=== PATIENT | female | born 1965 | race Caucasian/White ===

== ENCOUNTER 2021-04-19 02:47 | Emergency (ER) | payer OTHER, SELFPAY ==
[~2021-04-19 02:47] MED LIST: DIVA-80 PO; HALO1TAB19 PO; HYDR50CA9 PO; PARO30TA76 PO; TRAZ-186 PO
== END 2021-04-19 05:00 | disposition left against medical advice (07) ==
LOC: EMS 02:50
DX: R45.851 Suicidal ideations (principal); Z53.21 Procedure and treatment not carried out due to patient leaving prior to being seen by health care provider

== ENCOUNTER 2021-06-23 13:58 | Inpatient (IN) | payer MEDICAID ==
[~2021-06-23] VITALS: Ht 167.6 cm; Wt 70.5 kg
[~2021-06-23 13:58] MED LIST changes: +HYDR50CA7 PO; -HYDR50CA9 PO
[2021-06-23] MEDS ORDERED: HALOPERIDOL 5 MG TABLET PO PRN (19:15)
[2021-06-23] MEDS ORDERED: LORazepam 2 MG TABLET PO PRN ×2 (19:15→21:45)
[2021-06-23] MEDS ORDERED: ZOLPIDEM TARTRATE 10 MG TABLET PO PRN (19:15)
[2021-06-23] MEDS ORDERED: HALO2 PO (19:20)
[2021-06-23] MEDS ORDERED: INFLUENZA VIRUS VACCINE QVS 2021-22 (6MO+)/PF 60 MCG/0.5 ML SYRINGE IM. ONE (20:15)
[2021-06-23 21:10] VITALS: BP 147/96
[2021-06-23] MEDS ORDERED: LITH300C3 PO (21:40)
[2021-06-23] MEDS ORDERED: LURA40TA2 PO (21:40)
[2021-06-23] MEDS ORDERED: QUET300T2 PO (21:40)
[2021-06-23] MEDS ORDERED: GABA-1181 PO (21:40)
[2021-06-23] MEDS ORDERED: ROPI2TAB26 PO (21:40)
[2021-06-23 22:10] VITALS: BP 149/80
[2021-06-23 23:10] VITALS: BP 146/93
[2021-06-23 23:53] VITALS: BP 146/93
[2021-06-24] VITALS (8 sets, daily range): BP systolic 121–143; BP diastolic 70–96
[2021-06-24] MEDS ORDERED: ONDANSETRON HCL 4 MG TABLET PO PRN (07:00)
[2021-06-24] MEDS ORDERED: PETROLATUM,WHITE 28 GM JELLY TP PRN (07:00)
[2021-06-24] MEDS ORDERED: ALBUTEROL SULFATE HFA 90 MCG/PUFF 8 GM INHALER IH PRN (07:00)
[2021-06-24] MEDS ORDERED: NICOTINE 14 MG/24 HOUR PATCH TD PRN (07:00)
[2021-06-24] MEDS ORDERED: GuaiFENesin/D-METHORPHAN [SUGAR-FREE] 200-20MG/10 ML SYRUP UDCUP PO PRN (07:00)
[2021-06-24] MEDS ORDERED: MAG HYDROX/AL HYDROX/SIMETH ES 30 ML SUSPENSION UDCUP PO PRN (07:00)
[2021-06-24] MEDS ORDERED: LORazepam 2 MG TABLET PO PRN (07:00)
[2021-06-24] MEDS ORDERED: DOCUSATE SODIUM 100 MG CAPSULE PO PRN (07:00)
[2021-06-24] MEDS ORDERED: IBUPROFEN 400 MG TABLET PO PRN (07:00)
[2021-06-24] MEDS ORDERED: MAGNESIUM HYDROXIDE SUSPENSION 30 ML UDCUP PO PRN (07:00)
[2021-06-24] MEDS ORDERED: ACETAMINOPHEN 325 MG TABLET PO PRN (07:00)
[2021-06-24] MEDS ORDERED: CloNIDine HCL 0.1 MG TABLET PO PRN (07:00)
[2021-06-24] MEDS ORDERED: LOPERAMIDE HCL 2 MG CAPSULE PO PRN (07:00)
[2021-06-24 07:05] LABS: BASOPHILS % (AUTO) 0.5 % (0.0-2.0); EOSINOPHILS % (AUTO) 1.1 % (1.0-6.0); HEMATOCRIT 38.8 % (36-46); HEMOGLOBIN 13.1 g/dL (12.0-16.0); LYMPHOCYTES # (AUTO) 1.6 K/uL (1.0-4.8); LYMPHOCYTES % (AUTO) 23.8 % (22.0-44.0); MEAN CORPUSCULAR HEMOGLOBIN 29.7 pg (26.0-34.0); MEAN CORPUSCULAR HGB CONC 33.7 G/dL (31.0-37.0); MEAN CORPUSCULAR VOLUME 88 fL (80-100); MONOCYTES # (AUTO) 0.4 K/uL (0.1-1.0); MONOCYTES % (AUTO) 5.9 % (2.0-9.0); NEUTROPHILS # (AUTO) 4.6 K/uL (1.8-7.7); NEUTROPHILS % (AUTO) 68.7 % (40.0-70.0); PLATELET COUNT (AUTO) 276 K/uL (150-450); RED CELL DISTRIBUTION WIDTH 17.2 % (11.5-14.5)
[2021-06-24 07:22] LABS: HEMOGLOBIN A1C 5.1 % (3.8-5.6)
[2021-06-24 07:39] LABS: ALANINE AMINOTRANSFERASE 49 U/L (12-78); ALBUMIN 3.7 g/dL (3.4-5.0); ALKALINE PHOSPHATASE 78 U/L (46-116); ANION GAP 10 mmol/L (8-16); ASPARTATE AMINOTRANSFERASE 52 U/L (15-37); BILIRUBIN,TOTAL 0.7 mg/dL (0.1-1.0); CALCIUM, TOTAL 9.5 mg/dL (8.8-10.5); CARBON DIOXIDE 26 mmol/L (22-29); CHLORIDE 97 mmol/L (98-107); CHOL/HDL RATIO 1.9 (3.9-5.7); CHOLESTEROL 220 mg/dL (131-200); CREATININE 0.71 mg/dL (0.60-1.30); FREE T4 (FREE THYROXINE) 0.73 ng/dL (0.76-1.46); GLOMERULAR FILTR. RATE CALC > 60 mL/min (>60); GLUCOSE,RANDOM 92 mg/dL (70-110); HDL CHOLESTEROL 118 mg/dL (40-60); LDL CHOL (CALC.) 91 mg/dL (0-130); POTASSIUM 4.3 mmol/L (3.5-5.1); SODIUM SERUM 133 mmol/L (136-145); THYROID STIMULATING HORMONE 2.08 uIU/mL (0.36-3.74); TOTAL PROTEIN, SERUM 7.9 g/dL (6.4-8.2); TRIGLYCERIDES 54 mg/dL (15-150); UREA NITROGEN, BLOOD 16 mg/dL (7-18)
[2021-06-24] MEDS: CEPHALEXIN MONOHYDRATE 500 MG CAPSULE PO SCH ×2 (08:49→16:23)
[2021-06-24] MEDS: LORazepam 2 MG TABLET PO SCH ×4 (08:49→20:11)
[2021-06-24] MEDS ORDERED: TraZODone HCL 150 MG TABLET PO PRN (12:15)
[2021-06-24] MEDS ORDERED: QUEtiapine FUMARATE 300 MG TABLET PO ONE (12:15)
[2021-06-24] MEDS ORDERED: SERTRALINE HCL 100 MG TABLET PO SCH (12:15)
[2021-06-24] MEDS: GABAPENTIN 300 MG CAPSULE PO SCH ×2 (13:00→16:23)
[2021-06-24] MEDS ORDERED: NYSTATIN 500,000 UNITS/5 ML SUSPENSION UDCUP PO SCH (17:00)
[2021-06-24] MEDS ORDERED: LURASIDONE HCL 60 MG TABLET PO SCH (17:00)
[2021-06-24] MEDS ORDERED: DIVALPROEX SODIUM 500 MG DR TABLET PO SCH (17:00)
[2021-06-24] MEDS ORDERED: QUEtiapine FUMARATE 300 MG TABLET PO SCH (21:00)
[2021-06-25 01:31] VITALS: BP 115/64
[2021-06-26] MEDS ORDERED: LORazepam 1 MG TABLET PO PRN (07:00)
[2021-06-26] MEDS ORDERED: LORazepam 1 MG TABLET PO SCH (09:00)
[2021-06-27] MEDS ORDERED: LORazepam 1 MG TABLET PO PRN (07:00)
[2021-06-30] MEDS ORDERED: QUET200T30 PO (11:53)
[2021-06-30] MEDS ORDERED: SERT-440 PO (11:54)
== END 2021-06-25 05:00 | DRG 753 ==
LOC: B3A 19:09
PROVIDERS: ADMIT Psychiatry & Neurology Child & Adolescent Psychiatry; ATTEND Psychiatry & Neurology Child & Adolescent Psychiatry
DX: F31.4 Bipolar disorder, current episode depressed, severe, without psychotic features (principal); F10.239 Alcohol dependence with withdrawal, unspecified; F41.9 Anxiety disorder, unspecified; Y90.9 Presence of alcohol in blood, level not specified; Z88.8 Allergy status to other drugs, medicaments and biological substances
CPT/HCPCS: 80053; 80061; 83036; 84439; 84443; 85025; 90686; Q9967